=== PATIENT | male | born 1995 | race Caucasian/White ===

== ENCOUNTER 2019-01-25 22:19 | Emergency (ER) | payer OTHER ==
--- NOTE | 2019-01-25 22:48 | EDPHY ---
General - History Smoking Status: Light smoker Time Seen by Provider: 01/25/19 22:36 Narrative: CLINICAL IMPRESSION: URI, cough ASSESSMENT/PLAN: Patient is a 23-year-old male with no significant medical history who presents to the emergency department with runny nose, congestion, sore throat, cough and post-tussive vomiting that has been present for the last 3 days. Patient is fully vaccinated. Patient is afebrile, in no acute distress and nontoxic appearing. He was noted to be mildly tachycardic on arrival, 90 on my exam; I have a very low suspicion for serious bacterial illness. His lungs had coarse rhonchi easily cleared, faint expiratory wheeze, oxygen saturation was 95% on room air. CXR with no obvious cardiopulmonary abnormality. History and physical examination is most consistent with upper respiratory infection and cough, likely viral in nature. There is no evidence of significant sinusitis, meningitis, pneumonia or serious bacterial illness. The patient was given albuterol nebulizer, prednisone and ibuprofen with improvement of his symptoms. He will continue prednisone for the next several days, albuterol inhaler as needed. Return precautions discussed. DIFFERENTIAL DX: Differential diagnosis including but not limited to viral syndromes including influenza, pharyngitis, meningitis, pneumonia and sepsis. ED COURSE: 2257: Chest x-ray reviewed, no obvious consolidation. 2330: On repeat examination the patient is well-appearing, he reports that he is feeling better. He feels that his cough has improved since the albuterol nebulized treatment. His oxygen saturation is still 95% on room air. Breath sounds have improved, no audible wheeze. His neck is supple, there is no petechial rash is abdomen is soft and nontender to palpation. Patient understands the importance of follow-up, referral has been given for both a PCP and [place] as he is a student at the [employer]. CHIEF COMPLAINT: Runny nose, congestion, cough and post-tussive vomiting HPI: Patient is a 23-year-old male with no significant medical history who presents to the emergency department with complaints of runny nose, congestion, sore throat, cough and posttussive vomiting. Patient reports on Saturday he had a mild cough, he traveled by airplane to [place] for his brother's graduation. On Saturday night he felt that his cough started to worsen. He had very little sleep over the weekend secondary to graduation activities and school work. Patient reports worsening cough over the weekend, he is coughing so hard at times he vomits. He has had runny nose and congestion, he reports sore throat since his cough has been worsening. He denies any difficulty swallowing, difficulty opening his mouth, hoarseness, change in voice, neck stiffness or neck pain. His appetite has been moderate, occasional nausea when he is coughing. He denies any abdominal pain. He has had no rash. Patient was given a prescription for Z-Varghese without being seen from a prior visit with his PCP. He took 1 dose of the Z-Varghese prior to arrival here. He arrived back in [place] by plane just prior to arrival and came for further evaluation. PMH: Denies Family History: Not contributory Social History: Occasional marijuana, occasional vapor, occasional alcohol REVIEW OF SYSTEMS: All other systems negative Constitutional: Fever, decreased appetite. Eyes: No discharge, vision change ENT: Runny nose, congestion, sore throat. Cardiovascular: No chest pain, no palpitations. Respiratory: Cough. Gastrointestinal: Post-tussive vomiting. Genitourinary: No hematuria, dysuria, flank pain. Musculoskeletal: No back pain, joint swelling, joint pain, myalgias. Skin: No rashes, color change. Neurological: No headache, dizziness, weakness. PHYSICAL EXAM: General Appearance: Well-appearing, no acute distress and not toxic-appearing. HENT: Normocephalic, atraumatic. Bilateral external ears are normal. Bilateral tympanic membranes are normal with pearly manuel reflex. Nares are clear, mucosa is pink. Oropharynx is clear, uvula is midline. There is no tonsillar enlargement or exudate. The dentition is normal. Phonation is normal, there is no trismus, no stridor. Eyes: PERRLA, no acute vision change, nystagmus, swelling, discharge, pain or photosensitivity. Conjunctiva pink, no pallor or injection Neck: Supple, nontender, no lymphadenopathy, no midline pain, FROM, no meningismus. Respiratory: There are no retractions, coarse rhonchi throughout, easily clears with cough. There is faint expiratory wheeze. Cardiac: Mildly tachycardic on arrival, heart rate was 90 on my exam, no murmurs or gallops. Gastrointestinal: Abdomen is soft, nontender, bowel sounds normal, no masses/ hernia, no rigidity, guarding or focal peritoneal findings. Neurological: Alert and oriented x 3, CN 2-12 grossly intact, normal sensation and strength Skin: Warm, dry, no rashes, no nodules on palpation. Musculoskeletal: Extremities are symmetrical, full range of motion, no tenderness, deformity, swelling, or erythema. Psychiatric: Mood and affect are normal, there is no agitation. MEDICAL DECISION MAKING: Patient was seen independently. Secondary supervising physician at time of evaluation was Dr. Shabazz, she did not evaluate this patient. Diagnosis: URI with cough and congestion. Summary: See Assessment and Plan. Independent visualization of images, tracing, or specimens: Yes. Decision to obtain medical records or history from someone other than the patient: No Review / Summarize previous medical records: Yes Discussed patient with another provider: Yes, Dr. Shabazz Patient Progress: Stable, discharged. (Maria E Islas) PHYSICIAN DOCUMENTATION: The patient was evaluated and managed by the Physician Enamel Dipper. My co- signature indicates that I have reviewed this chart and I agree with the findings and plan of care as documented. I am the secondary supervising physician. (Anusha Shabazz) - Diagnostics Imaging Results: Imaging Impressions Chest X-Ray 01/25/19 22:36 IMPRESSION: Normal chest x-ray. - Objective Vital Signs: Initial Vital Signs Temperature (C) 36.9 C 01/25/19 22:21 Heart Rate 108 H 01/25/19 22:21 Respiratory Rate 19 01/25/19 22:21 Blood Pressure 158/94 H 01/25/19 22:21 O2 Sat (%) 95 01/25/19 22:21 O2 Delivery Mode Room Air Allergies/Adverse Reactions: Penicillins Allergy (Verified 01/25/19 22:24) Home Medications: Medication Instructions Recorded Albuterol [Proventil Inhaler HFA 1 - 2 puffs IH Q4H #1 mdi 01/25/19 (*)] predniSONE [Deltasone] 20 mg PO BID 3 Days tablet 01/25/19 Medications Given: Discontinued Medications Albuterol (Proventil Neb) 3 ml IH EDNOW ONE Stop: 01/25/19 22:56 Last Admin: 01/25/19 23:07 Dose: 3 ml Albuterol Sulfate (Proventil Inh Prepack) 1 mdi TAKEHOME EDNOW ONE Stop: 01/25/19 23:40 Last Admin: 01/25/19 23:41 Dose: 1 mdi Ibuprofen (Motrin) 400 mg PO EDNOW ONE Stop: 01/25/19 22:57 Last Admin: 01/25/19 23:07 Dose: 400 mg Prednisone (Prednisone) 60 mg PO EDNOW ONE Stop: 01/25/19 22:56 Last Admin: 01/25/19 23:07 Dose: 60 mg Departure - Departure Disposition: Home, Routine, Self-Care Clinical Impression: URI with cough and congestion Condition: Good Instructions: Albuterol (By breathing), Upper Respiratory Infection (ED) Additional Instructions: DISCHARGE INSTRUCTIONS FROM YOUR PROVIDER Thank you for visiting our emergency department today. Please keep in mind that discharge from the emergency department does not mean that there is nothing wrong - it simply means that we have not identified an emergency condition that requires further evaluation or treatment in the hospital. You should always plan to follow up with primary care for re-evaluation of your condition in the next 2-3 days. Continue prednisone for the next 3 days, take twice a day with food and a full glass of water. Use your albuterol inhaler as needed for severe cough or wheeze. Rest, push non-diuretic, non-caffeinated fluids, consume a healthy diet, all to help support your immune system fight infection. Consider running a coolmist humidifier in the bedroom. Consider warm salt water gargles for sore throat. Consider over the counter saline nasal washes ie: Neilmed sinus rinse, [place] or [place]. Consider over the counter Mucinex for congestion and/or cough as directed. For pain control: You may take Tylenol, I recommend 500-1000 mg every 6-8 hours as needed. Take with food and a full glass of water. Stop taking if this is upsetting you stomach. Do not exceed 4000 mg in a 24 hr period. You may also take ibuprofen, recommend 400 mg every 6 hr. Take with food and a full glass of water. Stop taking if this upsets your stomach. Do not exceed 2400 mg in a 24 hr period. As discussed, in the setting of a viral illness, you may develop a secondary bacterial infection, requiring an antibiotic. Watch for new or changing symptoms ie: new ear pain or drainage, increasing cough, shortness of breath, high fever, or any other concerning symptoms. Schedule a follow-up appointment with your primary care physician in the next 2- 3 days for re-evaluation, sooner for any new concerns. Return for high fever, shaking chills, severe headache, facial redness or swelling, drainage from your ears, difficulty breathing or swallowing, throat tightness, drooling, change in voice, inability to open your mouth normally, severe neck pain, neck stiffness, shortness of breath, wheezing, noisy breathing , coughing up blood, chest pain, vomiting, diarrhea, bloody stools, decreased urine output or other concerns for dehydration, bloody urine, rash, dizziness, weakness, fainting, or for any other new, worsening or worrisome symptoms. People present with illnesses and injuries in different ways, and it is always possible that we have missed something. Again, thank you for choosing our emergency department. We hope that you feel better. Referrals: Lilli Tinoco MD [Medical Doctor] - As per Instructions (This is a referral for a primary care provider if you do not have 1) [facility] [Clinic] - 2-3 days, if not improved (Please follow-up at the [facility]) Prescriptions: Albuterol [Proventil Inhaler HFA (*)] 1 - 2 puffs IH Q4H #1 mdi predniSONE [Deltasone] 20 mg PO BID 3 Days tablet
[2019-01-25] MEDS ORDERED: predniSONE 20 MG TAB PO ONE (22:55)
[2019-01-25] MEDS ORDERED: ALBUTEROL 3 ML DEYVIAL IH ONE (22:55)
[2019-01-25] MEDS ORDERED: IBUPROFEN 200 MG TAB PO ONE (22:56)
[2019-01-25] MEDS ORDERED: ALBUTEROL 60 PUFFS/8 GM MDI IH PRN (23:33)
[2019-01-25] MEDS ORDERED: ALBUTEROL INH PREPACK MDI TAKEHOME ONE ×2 (23:38→23:39)
[2019-01-25 23:46] VITALS: BP 136/73
== END 2019-01-25 23:44 | disposition home or self-care (01) ==
DX: J06.9 Acute upper respiratory infection, unspecified (principal)
CPT/HCPCS: J7512; J7613